=== PATIENT | female | born 1950 | race Hispanic/Latino ===

== ENCOUNTER 2017-10-08 18:45 | Emergency (ER) | payer MEDICAID, OTHER ==
[2017-10-08 18:55] VITALS: BMI 24.0
--- NOTE | 2017-10-08 19:15 | ED PDOC ---
Arrival/HPI - General Chief Complaint: Abnormal Skin Integrity Time Seen by Provider: 10/08/17 19:07 Historian: Patient EM Caveat: Acuity of Condition - History of Present Illness Narrative History of Present Illness (Text): 10/08/17 19:16 Pt is a 67 yr old female who presents to the Ed c/o highly pruritic rash s/p contact with poison deepika 3 days ago. Pt states she was seen by her PMD in [place] and given Medrol Dose bianca, mometasone cream and Keflex 500mg. Pt states she is here because she feels the medication is not working and is " going out of her mind". Denies fever, chills, trauma, n/v/d, [place], change in vision, or any other complaints. Time/Duration: < week Symptom Onset: Gradual Symptom Course: Unchanged, Worsening Quality: Other (itchy) Severity Level: 2 Activities at Onset: Rest Context: Home (contact with poison deepika at [facility]) Past Medical History - Provider Review Nursing Documentation Reviewed: Yes - Travel History Have you recently traveled outside [place] w/in the past 3 mons?: No - Cardiac Hx Hypertension: Yes - Pulmonary Hx Respiratory Disorders: No - Neurological Hx Neurological Disorder: No - HEENT Hx HEENT Disorder: No - Renal Hx Renal Disorder: No - Endocrine/Metabolic Hx Endocrine Disorders: No - Hematological/Oncological Hx Blood Disorders: No - Integumentary Hx Dermatological Disorder: No - Musculoskeletal/Rheumatological Hx Musculoskeletal Disorders: No - Gastrointestinal Hx Gastrointestinal Disorders: No - Genitourinary/Gynecological Hx Genitourinary Disorders: No - Psychiatric Hx Anxiety: Yes Hx Depression: Yes Hx Emotional Abuse: No Hx Physical Abuse: No Hx Substance Use: No - Suicidal Assessment Feels Threatened In Home Enviroment: No Family/Social History - Physician Review Nursing Documentation Reviewed: Yes Family/Social History: Unknown Family HX Smoking Status: Never Smoked Hx Alcohol Use: Yes (occassionally) Hx Substance Use: No Hx Substance Use Treatment: No Allergies/Home Meds Allergies/Adverse Reactions: Allergies No Known Allergies Allergy (Verified 10/08/17 18:52) Home Medications: Home Meds Medication Instructions Recorded Confirmed Losartan/Hydrochlorothiazide 1 tab PO DAILY 10/27/11 10/08/17 [Hyzaar 12.5 mg-100 mg] Cephalexin [cephalexin] 500 mg PO Q12 10/08/17 10/08/17 Review of Systems - Review of Systems Constitutional: Normal. absent: Fatigue, Fevers Eyes: Normal ENT: Normal Respiratory: Normal. absent: SOB, Cough Cardiovascular: Normal. absent: Chest Pain Gastrointestinal: Normal. absent: Abdominal Pain Genitourinary Female: Normal. absent: Dysuria Musculoskeletal: Normal Skin: Rash (arms, legs and trunk), Pruritis, Skin Lesions Neurological: Normal. absent: Headache Endocrine: Normal Hemo/Lymphatic: Normal Psychiatric: Normal Physical Exam Vital Signs Reviewed: Yes Vital Signs Temp Pulse Resp BP Pulse Ox 10/08/17 20:04 98.3 F 75 18 121/78 100 Temperature: Afebrile Blood Pressure: Normal Pulse: Regular Respiratory Rate: Normal Appearance: Positive for: Non-Toxic, Comfortable Pain Distress: Mild Mental Status: Positive for: Alert and Oriented X 3, Agitated - Systems Exam Head: Present: Atraumatic, Normocephalic Pupils: Present: PERRL Extroacular Muscles: Present: EOMI Conjunctiva: Present: Normal Mouth: Present: Moist Mucous Membranes Neck: Present: Normal Range of Motion Respiratory/Chest: Present: Clear to Auscultation, Good Air Exchange. No: Respiratory Distress, Accessory Muscle Use Cardiovascular: Present: Regular Rate and Rhythm, Normal S1, S2. No: Murmurs Abdomen: No: Tenderness, Distention, Peritoneal Signs Back: Present: Normal Inspection Upper Extremity: Present: Normal Inspection. No: Cyanosis, Edema Lower Extremity: Present: Normal Inspection. No: Edema Neurological: Present: GCS=15, CN II-XII Intact, Speech Normal Skin: Present: Warm, Dry, Rashes (bilateal UE and LE and trunk; macular rash with excoriations), Normal Color Psychiatric: Present: Alert, Oriented x 3, Normal Insight, Normal Concentration Medical Decision Making ED Course and Treatment: 10/08/17 19:21 Impression Pt is a 67 yr old female who presents to the Ed c/o highly pruritic rash s/p contact with poison deepika 3 days ago. Plan decadron 10mg IM assess and dispo Progress note Benadryl for home and continue taking Rx given by PMD 10/08/17 19:47 Explained to pt the effects of decadron and expectations Use benadryl to assist sleep and pruritus; use caution when driving f/u with PMD in [place] in 2 days - Medication Orders Current Medication Orders: Discontinued Medications Dexamethasone (Decadron Inj) 10 mg IM STAT STA Stop: 10/08/17 19:09 Last Admin: 10/08/17 19:17 Dose: 10 mg IM Administration Charges Document 10/08/17 19:17 AD (Rec: 10/08/17 19:17 AD [id number]) Injection Site MAR Injection Site Left Deltoid Charges for Administration # of IM Administrations 1 Disposition/Present on Arrival - Present on Arrival Any Indicators Present on Arrival: Yes History of DVT/PE: No History of Uncontrolled Diabetes: No Urinary Catheter: No History of Decub. Ulcer: No History Surgical Site Infection Following: None - Disposition Have Diagnosis and Disposition been Completed?: Yes Diagnosis: Poison deepika dermatitis Disposition: HOME/ ROUTINE Disposition Time: 19:45 Patient Plan: Discharge Condition: STABLE Discharge Instructions (ExitCare): Poison Deepika Additional Instructions: FANY WEBB, thank you for letting us take care of you today. Your provider was Pipo Lee DO and SHERICE Krishnan and you were treated for POISON DEEPIKA DERMATITIS. The emergency medical care you received today was directed at your acute symptoms. If you were prescribed any medication, please fill it and take as directed. It may take several days for your symptoms to resolve. Return to the Emergency Department if your symptoms worsen, do not improve, or if you have any other problems. PLEASE FOLLOW UP WITH YOUR PRIMARY CARE DOCTOR IN THE NEXT 2 DAYS. CONTINUE TAKING THE MEDICATION YOUR WERE GIVEN; TAKE MEDICATION DIRECTED. Please contact your doctor or call one of the physicians/clinics you have been referred to that are listed on the Patient Visit Information form that is included in your discharge packet. Bring any paperwork you were given at discharge with you along with any medications you are taking to your follow up visit. Our treatment cannot replace ongoing medical care by a primary care provider outside of the emergency department. Thank you for allowing the [facility] team to be part of your care today. Prescriptions: DiphenhydrAMINE [Benadryl] 25 mg PO Q8 5 Days #15 cap Forms: [employer] (Guyanese)
[2017-10-08 20:05] VITALS: BP 121/78; PULSE 75; RESP 18; TEMP 98.3; O2SAT 100
== END 2017-10-08 20:05 | disposition home or self-care (01) ==
LOC: ED 18:45
DX: L23.7 Allergic contact dermatitis due to plants, except food (principal); I10 Essential (primary) hypertension
CPT/HCPCS: 96372; 99283; J1100